=== PATIENT | male | born 1960 | race Caucasian/White ===

== ENCOUNTER 2020-10-12 19:33 | Observation (INO) ==
[2020-10-12] MEDS: Aspirin Enteric Coated 325 MG Tablet PO SCH (22:02)
[2020-10-13 03:10] LABS: Hematocrit 42.5 % (37.5-50.1); Hemoglobin 14.5 g/dL (12.9-16.9); Mean Corpuscular HGB Conc 34.1 g/dL (31.6-35.5); Mean Corpuscular Hemoglobin 30.3 pg (28.0-33.3); Mean Corpuscular Volume 88.9 fL (83.0-100.0); Mean Platelet Volume 11.7 fL (9.4-12.4); Platelet Count 233 K/mcL (140-400); Red Blood Count 4.78 M/mcL (4.19-5.50); Red Cell Distribution Width 12.3 % (11.5-14.5); White Blood Count 8.7 K/mcL (4.3-11.1)
[2020-10-13 03:29] LABS: BUN/Creatinine Ratio 13 (6-26); Blood Urea Nitrogen 13 mg/dL (6-20); Calcium 8.7 mg/dL (8.6-10.3); Carbon Dioxide 26 mEq/L (23-29); Chloride 108 mEq/L (98-107); Chol/HDL Ratio 4.9 (0-4.9); Cholesterol 209 mg/dL (< 200); Glucose 92 mg/dL (70-105); HDL Cholesterol 43 mg/dL (40-59); LDL Cholesterol,Calculated 143 mg/dL (< 100); Osmolality,Calculated 296 (280-300); Potassium 4.2 mEq/L (3.5-5.1); Sodium 143 mEq/L (136-145); Triglycerides 117 mg/dL (< 150); eGFR For African Americans > 60 (> 60); eGFR For Non-African Americans > 60 (> 60)
[2020-10-13 07:09] VITALS: BP 148/78
[2020-10-13] MEDS: Aspirin Enteric Coated 325 MG Tablet PO SCH (08:57)
[2020-10-15 14:30] LABS: Estimated Average Glucose 120 mg/dl; Hemoglobin A1C 5.8 %
== END 2020-10-13 10:46 | disposition home or self-care (01) ==
LOC: 3BNU
PROVIDERS: ADMIT Internal Medicine; ATTEND Internal Medicine